=== PATIENT | male | born 1985 | race Caucasian/White ===

== ENCOUNTER 2020-06-14 01:23 | Emergency (ER) | payer OTHER | END 2020-06-14 02:53 | LOC: ED 01:23 | DX: Z02.89 Encounter for other administrative examinations (principal) ==

== ENCOUNTER 2020-06-14 01:23 | Emergency (ER) | payer OTHER ==
[~2020-06-14] VITALS: Ht 172.7 cm; Wt 68.0 kg
[2020-06-14 01:30] VITALS: Ht 172.7 cm; Wt 68.0 kg
[2020-06-14 02:53] VITALS: BP 131/81
== END 2020-06-14 02:53 | disposition home or self-care (01) ==
LOC: ED 01:23
DX: F15.10 Other stimulant abuse, uncomplicated (principal); R00.2 Palpitations; Z88.0 Allergy status to penicillin